=== PATIENT | female | born 1945 | race Caucasian/White ===

== ENCOUNTER 2017-11-19 13:47 | Emergency (ER) | payer MEDICARE ==
[~2017-11-19 13:47] MED LIST: HYDR-385 PO; HYDR-4309 PO; LEVO50TA80 PO; LISI5TAB25 PO
--- NOTE | 2017-11-19 13:52 | ER Report ---
History and Physical Time Seen By MD: 13:52 HPI/ROS 72-year-old female who is also a daily cigarette smoker presents to the emergency department with approximately one week of worsening right ear pain. She was seen by her primary care physician 3-4 days ago and given a steroid ear drop, Claritin, and a nasal spray. The patient says she has been compliant with the medications, but states that her pain and fullness in her right ear has been worsening. She also reports mild congestion. No fever chills. No headache and no neck stiffness. No other symptoms other than pain in her right ear. Allergies: Coded Allergies: No Known Drug Allergies (Unverified , 02/12/17) Home Meds Active Scripts Amoxicillin (AMOXICILLIN) 500 Mg Capsule, 1 CAP PO Q8H, #15 CAPSULE 0 Refills Prov:CARLIE JO MD 11/19/17 Hydrocodone Bit/Acetaminophen (HYDROCODON-ACETAMINOPHEN 5-325) 1 Each Tablet, 0.5-1 EACH PO Q4H Y for PAIN, #20 TAB 0 Refills Prov:SANTHOSH GIMENEZ MD 02/12/17 Reported Medications Lisinopril (LISINOPRIL) 5 Mg Tablet, 5 MG PO QDAY 02/15/13 Levothyroxine Sodium (SYNTHROID) 50 Mcg Tablet, 50 MCG PO QDAY TAKE ONE TABLET BY MOUTH IN THE MORNING ON AN EMPTY STOMACH AT LEAST 30 MINUTES BEFORE FOOD 02/15/13 Reviewed Nurses Notes: Yes Old Medical Records Reviewed: Yes Hx Smoking: Yes (1 PPD X 40 YRS) Smoking Status: Never Smoker, Current: Every Day Smoker Hx Substance Use Disorder: No Hx Alcohol Use: Yes Constitutional Vital Sign - Last 24 Hours 11/19/17 11/19/17 11/19/17 11/19/17 13:51 13:53 14:02 14:03 Temp 98.0 Pulse 71 72 Resp 20 14 B/P (MAP) 177/106 (129) 177/106 156/112 (127) Pulse Ox 92 93 O2 Delivery Room Air 11/19/17 11/19/17 14:17 14:18 Pulse ??? B/P (MAP) 148/87 (107) Physical Exam General Appearance: The patient is alert, has no immediate need for airway protection and no current signs of toxicity. Eyes: Pupils equal and round no injection. TM's full with loss of landmark in right TM Respiratory: Chest is non tender, lungs are clear to auscultation. Cardiac: regular rate and rhythm Gastrointestinal: Abdomen is soft and non tender, no masses, bowel sounds normal. Neck: Neck is supple and non tender. Extremities have full range of motion and are non tender. Skin: No rashes or lesions. DIFFERENTIAL DIAGNOSIS: After history and physical exam differential diagnosis was considered for otitis media, otitis externa. Viral illness, bacterial infection Medical Decision Making ED Course/Re-evaluation ED Course 72-year-old female with pain and fullness in her weight care for approximately the past week. Has tried steroid eardrops, nasal spray, and antihistamines without improvement. She otherwise appears well, but it is reasonable at this point given she failed conservative treatment to place her on antibiotics for a presumed otitis media. She was given amoxicillin, and will follow-up with her primary care physician. Decision to Disposition Date: Nov 19, 2017 Decision to Disposition Time: 14:19 Depart Departure Latest Vital Signs Vital Signs Date Time Temp Pulse Resp B/P (MAP) Pulse Ox O2 Delivery O2 Flow Rate FiO2 11/19/17 14:18 148/87 (107) 11/19/17 14:17 ??? 11/19/17 14:02 14 93 11/19/17 13:53 98.0 Room Air Impression: Primary Impression: Otitis media Condition: Improved Disposition: HOME OR SELF-CARE New Scripts Amoxicillin (AMOXICILLIN) 500 Mg Capsule 1 CAP PO Q8H, #15 CAPSULE 0 Refills Prov: CARLIE JO MD 11/19/17 Patient Instructions: Otitis Media (ED) Problem Qualifiers Primary Impression: Otitis media Otitis media type: unspecified nonsuppurative Laterality: right Qualified Codes: H65.91 - Unspecified nonsuppurative otitis media, right ear CARLIE JO MD Nov 19, 2017 13:52
[2017-11-19 14:18] VITALS: BP 148/87
[2017-11-19] MEDS ORDERED: AMOX-362 PO (14:20)
--- NOTE | 2017-11-19 15:00 | EKG ---
FACILITY: [facility] [place] PATIENT NAME: KENIA FATIMA : [id number] MR: [id number] V: [id number] EXAM DATE: ORDERING PHYSICIAN: CARLIE JO TECHNOLOGIST: EDVIN Test Reason : RESP ISSUES Blood Pressure : / mmHG Vent. Rate : 073 BPM Atrial Rate : 073 BPM P-R Int : 148 ms QRS Dur : 088 ms QT Int : 388 ms P-R-T Axes : 027 048 040 degrees QTc Int : 427 ms Normal sinus rhythm Normal ECG No previous ECGs available Confirmed by DAYANARA NANCE ([id number]) on 11/19/2017 4:48:31 PM Referred By: SANDRO Confirmed By:DAYANARA NANCE
== END 2017-11-19 14:40 | disposition home or self-care (01) ==
LOC: ER 14:00
DX: H65.91 Unspecified nonsuppurative otitis media, right ear (principal); F17.210 Nicotine dependence, cigarettes, uncomplicated; R09.81 Nasal congestion; R06.00 Dyspnea, unspecified
CPT/HCPCS: 93005; 99283